=== PATIENT | male | born 1950 | race Caucasian/White ===

== ENCOUNTER 2018-02-28 12:07 | Emergency (ER) | payer MEDICARE, OTHER ==
[~2018-02-28] VITALS: Ht 172.7 cm; Wt 105.3 kg
[~2018-02-28 12:07] MED LIST: ACID1TAB3 PO; ASCO100072 PO; ASPI325T17 PO; CEPH-368 PO; FENO145T32 PO; METO25TA35 PO; SITA50TA PO; VALS80TA3 PO; VITA1CAP PO
[2018-02-28 13:24] LABS: BASOPHILS # (AUTO) 0.02 x10^3/uL (0-0.1); BASOPHILS % (AUTO) 0 % (0-1); EOSINOPHILS % (AUTO) 4 % (1-7); LYMPHOCYTES # (AUTO) 1.71 x10^3/uL (1-3.4); LYMPHOCYTES % (AUTO) 18 % (22-44); MD NO; MEAN CORPUSCULAR HEMOGLOBIN 29.3 pg (27.5-34.5); MEAN CORPUSCULAR HGB CONC 33.8 g/dL (33.2-36.2); MEAN CORPUSCULAR VOLUME 86.5 fL (81-97); MEAN PLATELET VOLUME 8.6 fL (7.4-10.4); MONOCYTES # (AUTO) 0.97 x10^3/uL (0.2-0.8); MONOCYTES % (AUTO) 10 % (2-9); NEUTROPHILS # (AUTO) 6.23 x10^3/uL (1.8-6.8); NEUTROPHILS % (AUTO) 67 % (42-75); PLATELET COUNT 237 x10^3/uL (130-400); RED BLOOD COUNT 5.29 x10^6/uL (4.38-5.82)
[2018-02-28 13:33] LABS: ANION GAP 9 mmol/L (5-15); CALCIUM 9.2 mg/dL (8.5-10.1); CHLORIDE 106 mmol/L (98-107); CREATININE 1.05 mg/dL (0.7-1.3)
[2018-02-28 14:23] VITALS: BP 119/73
== END 2018-02-28 14:34 | disposition home or self-care (01) ==
LOC: ED 14:28
DX: L03.012 Cellulitis of left finger (principal); J45.909 Unspecified asthma, uncomplicated; E11.9 Type 2 diabetes mellitus without complications; I48.91 Unspecified atrial fibrillation
CPT/HCPCS: 36415; 80048; 82040; 85025; 99285